=== PATIENT | male | born 1985 | race Caucasian/White ===

== ENCOUNTER 2025-02-12 21:45 | Emergency (ER) | payer OTHER ==
[2025-02-13] MEDS: Ketorolac 30 MG/ML SDV IVPUSH ONE (00:01)
[2025-02-13] MEDS: Ondansetron 4 MG/2 ML SDV IVPUSH ONE (00:01)
[2025-02-13] MEDS: LORazepam 2 MG/ML SDV IVPUSH ONE (00:02)
[2025-02-13 00:10] LABS: BASOPHILS ABSOLUTE AUTO 0.04 K/uL (0.00-0.20); BASOPHILS PERCENT AUTO 0.3 % (0.0-1.0); EOSINOPHILS ABSOLUTE AUTO 0.02 K/uL (0.00-0.45); EOSINOPHILS PERCENT AUTO 0.1 % (0.0-6.0); HEMATOCRIT 50.6 % (42.0-52.0); HEMOGLOBIN 18.2 g/dL (14.0-18.0); IMMATURE GRAN ABSOLUTE AUTO 0.05 K/uL (0.00-0.05); IMMATURE GRAN PERCENT AUTO 0.3 % (0.0-0.4); LYMPHOCYTES ABSOLUTE AUTO 2.04 K/uL (1.00-4.80); MEAN CORPUSCULAR HEMOGLOBIN 30.3 pg (28.0-32.0); MEAN CORPUSCULAR VOLUME 84.2 fL (83.0-99.0); MEAN PLATELET VOLUME 10.1 fL (9.4-12.4); MONOCYTES ABSOLUTE AUTO 1.25 K/uL (0.00-0.80); NEUTROPHILS ABSOLUTE AUTO 12.31 K/uL (1.80-7.70); NEUTROPHILS PERCENT AUTO 78.3 % (41.0-71.0); PLATELET COUNT,PLT 254 K/uL (150-400); RED BLOOD CELL COUNT 6.01 M/uL (4.52-5.90); WHITE BLOOD CELL COUNT,WBC 15.71 K/uL (3.9-11.3)
[2025-02-13 00:21] LABS: APPEARANCE,URINE CLOUDY; GLUCOSE,URINE NEGATIVE (NEGATIVE); KETONES,URINE >=80 mg/dL (NEGATIVE); LEUKOCYTE ESTERASE,URINE NEGATIVE (NEGATIVE); NITRITE,URINE NEGATIVE (NEGATIVE); OCCULT BLOOD,URINE NEGATIVE (NEGATIVE); PROTEIN,URINE 100 mg/dL (NEGATIVE); UROBILINOGEN,URINE 0.2 EU/dL (<2.0)
[2025-02-13 00:28] LABS: CALCIUM 10.1 mg/dL (8.5-10.1); CARBON DIOXIDE,CO2 22.1 mmol/L (21.0-32.0); CREATININE 1.2 mg/dL (0.8-1.3); EST CRCL DRUG DOSING (CG) 88.9 mL/min; POTASSIUM,K 3.7 mmol/L (3.5-5.1)
[2025-02-13 00:39] LABS: BILIRUBIN,URINE MODERATE (NEGATIVE); COLOR,URINE AMBER
[2025-02-13 00:40] LABS: CALCIUM OXALATE CRYSTALS,URINE MANY (NEGATIVE); EPITHELIAL CELLS,URINE FEW (NONE-FEW); HYALINE CASTS,URINE TNTC (0-2/LPF); MUCUS,URINE MANY (NONE-MOD); OTHER CRYSTALS,URINE FEW; RBC,URINE 0-2 (0-2/HPF)
[2025-02-13] MEDS: Sodium Chloride 0.9% 1,000 ML IV ONE ×2 (01:47→02:49)
== END 2025-02-13 04:01 | disposition home or self-care (01) ==
LOC: MW.ED 21:45
DX: E86.0 Dehydration (principal); Z88.8 Allergy status to other drugs, medicaments and biological substances; Z79.899 Other long term (current) drug therapy
CPT/HCPCS: 36415; 74176; 80048; 81001; 85025; 96361; 96374; 96375; 99284; J1885; J2060; J2405; J7030